=== PATIENT | male | born 1950 | race Hispanic/Latino ===

== ENCOUNTER 2017-01-19 08:04 | Day surgery (SDC) | payer MEDICARE, BC ==
[2017-01-13 10:41] VITALS: BMI 27.0
[2017-01-19] MEDS ORDERED: Propofol 10 mg/ml Inj (20 ML) ONE ×2 (10:07→10:33)
[2017-01-19] MEDS ORDERED: Sodium Chloride 0.9% 1,000 ML IV SCH (11:00)
[2017-01-19 17:42] VITALS: BP 121/63; PULSE 56; RESP 16; TEMP 97.5; O2SAT 100
== END 2017-01-19 12:15 | disposition home or self-care (01) ==
LOC: ENDO 08:04
PROVIDERS: ATTEND Internal Medicine
DX: K62.5 Hemorrhage of anus and rectum (principal); D12.2 Benign neoplasm of ascending colon; K64.8 Other hemorrhoids
CPT/HCPCS: 45380; 88305; J2001; J2704; J7040 ×2